=== PATIENT | female | born 1980 | race Caucasian/White ===

== ENCOUNTER 2017-06-15 18:43 | Emergency (ER) | payer MEDICAID ==
[2017-06-15 18:44] VITALS: BMI 25.5
[2017-06-15 18:55] VITALS: TEMP 97.9
[2017-06-15 19:58] VITALS: O2SAT 100
[2017-06-15 20:39] LABS: URINE BILIRUBIN NEGATIVE (NEGATIVE); URINE BLOOD LARGE (NEGATIVE); URINE GLUCOSE (UA) NEGATIVE (NEGATIVE); URINE KETONE TRACE mg/dL (NEGATIVE); URINE LEUKOCYTE ESTERASE SMALL Leu/uL (NEGATIVE); URINE PROTEIN TRACE mg/dL (<30 mg/dL); URINE UROBILINOGEN 0.2 E.U./dL (<1 E.U./dL)
[2017-06-15 20:43] LABS: BASO # 0.03 K/mm3 (0.0-2.0); BASO % 0.4 % (0.0-3.0); EOS # 0.1 (0.0-0.7); EOS % 1.3 % (1.5-5.0); GRAN # 3.63 (1.4-6.5); GRAN % 50.4 % (50.0-68.0); HEMATOCRIT 32.3 % (36.0-48.0); LYMPH # 2.9 (1.2-3.4); MEAN CELL VOLUME 73.7 fl (80.0-105.0); MEAN CORPUSCULAR HEMOGLOBIN 23.3 pg (25.0-35.0); MEAN CORPUSCULAR HGB CONC 31.6 g/dl (31.0-37.0); MEAN PLATELET VOLUME 9.7 fl (7.0-11.0); MONO # 0.6 (0.1-0.6); MONO % 7.9 % (1.0-6.0); RED CELL DISTRIBUTION WIDTH 17.2 % (11.5-14.5); WHITE BLOOD COUNT 7.2 10^3/ul (4.5-11.0)
[2017-06-15 20:45] LABS: ALB/GLOB RATIO 1.2 (1.1-1.8); ALKALINE PHOSPHATASE 71 U/L (38-126); ALT/SGPT 51 U/L (7-56); AST/SGOT 42 U/L (14-36); BILIRUBIN,TOTAL 0.2 mg/dL (0.2-1.3); BLOOD UREA NITROGEN 13 mg/dL (7-21); CALCIUM 8.9 mg/dL (8.4-10.5); CARBON DIOXIDE 27 mmol/L (21-33); CHLORIDE 104 mmol/L (98-107); GFR AFRICAN-AMERICAN > 60; GLUCOSE,RANDOM 97 mg/dL (70-110); POTASSIUM 3.5 mmol/L (3.6-5.0); SODIUM 139 mmol/L (132-148); TOTAL PROTEIN 7.4 g/dL (5.8-8.3)
[2017-06-15 20:45] LABS: URINE APPEARANCE CLEAR (CLEAR); URINE COLOR YELLOW (YELLOW)
[2017-06-15 20:46] LABS: URINE RBC 25 - 30 /hpf (0-2)
[2017-06-15 20:47] LABS: URINE AMORPHOUS SEDIMENT SMALL; URINE BACTERIA TRACE (NEG)
[2017-06-15 21:10] VITALS: BP 141/73; PULSE 88; RESP 16
--- NOTE | 2017-06-15 21:19 | ED PDOC ---
Arrival/HPI - General Chief Complaint: Female Genitourinary Time Seen by Provider: 06/15/17 19:17 Historian: Patient - History of Present Illness Narrative History of Present Illness (Text): 06/15/17 21:19 A 37 year old female presents to the emergency department complaining of chronic lower back pain and vaginal bleeding. Patient reports lower back pain for the past two months. Notes she was seen and [place] [facility] [place] , and xray of back was normal. She was prescribed muscle relaxers. Reports pain is worse when sitting and standing. Patient reports dysuria today, but denies any hematuria, radiation, paresthesia, bowel incontinence. Patient also presents with complaint of vaginal bleeding, intermittently for a month and a half. 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 Reports fibroids and cyst. Notes she is not sexually active. Denies any abdominal pain or any other complaints at this time. Time/Duration: > month, Other (today) Symptom Onset: Sudden Symptom Course: Unchanged Activities at Onset: Rest Context: Home Past Medical History - Provider Review Nursing Documentation Reviewed: Yes - Past History Past History: No Previous - Infectious Disease Hx of Infectious Diseases: None - Tetanus Immunization Tetanus Immunization: Unknown - Reproductive Currently : No - Psychiatric Hx Depression: No Hx Emotional Abuse: No Hx Physical Abuse: No Hx Substance Use: No - Past Surgical History Past Surgical History: No Previous - Surgical History Hx Cholecystectomy: Yes - Suicidal Assessment Feels Threatened In Home Enviroment: No Family/Social History - Physician Review Nursing Documentation Reviewed: Yes Family/Social History: Diabetes Smoking Status: Never Smoked Hx Alcohol Use: No Hx Substance Use: No (denies any h/o IV drug use) Hx Substance Use Treatment: No Allergies/Home Meds Allergies/Adverse Reactions: Allergies No Known Allergies Allergy (Verified 06/15/17 18:55) Review of Systems - Physician Review All systems were reviewed & negative as marked: Yes - Review of Systems Constitutional: absent: Fatigue, Weight Change, Fevers Respiratory: absent: SOB, Cough, Sputum Cardiovascular: absent: Chest Pain, Palpitations, Edema Gastrointestinal: absent: Abdominal Pain, Diarrhea, Vomiting Genitourinary Female: Dysuria, Vaginal Bleeding. absent: Hematuria Musculoskeletal: Back Pain (lower). absent: Arthralgias, Neck Pain, Joint Swelling Skin: absent: Rash, Pruritis, Skin Lesions Physical Exam Vital Signs Reviewed: Yes Vital Signs Temp Pulse Resp BP Pulse Ox 06/15/17 21:07 88 16 141/73 100 06/15/17 19:57 73 18 136/68 100 06/15/17 18:52 97.9 F 72 16 122/82 99 Temperature: Afebrile Blood Pressure: Normal Pulse: Regular Respiratory Rate: Normal Appearance: Positive for: Well-Appearing, Non-Toxic, Comfortable Pain Distress: None Mental Status: Positive for: Alert and Oriented X 3 - Systems Exam Head: Present: Atraumatic, Normocephalic Pupils: Present: PERRL Extroacular Muscles: Present: EOMI Conjunctiva: Present: Normal Mouth: Present: Moist Mucous Membranes Neck: Present: Normal Range of Motion Respiratory/Chest: Present: Clear to Auscultation, Good Air Exchange. No: Respiratory Distress, Accessory Muscle Use Cardiovascular: Present: Regular Rate and Rhythm, Normal S1, S2. No: Murmurs Abdomen: Present: Normal Bowel Sounds. No: Tenderness, Distention, Peritoneal Signs Genitourinary/Pelvic Exam: Present: Other (not performed as the patient is still a virgin) Back: Present: Normal Inspection, Other (paralumbar tenderness). No: CVA Tenderness, Midline Tenderness, Pain with Leg Raise Upper Extremity: Present: Normal Inspection. No: Cyanosis, Edema Lower Extremity: Present: Normal Inspection, Other (straight leg raises negative ). No: Edema Neurological: Present: GCS=15, CN II-XII Intact, Speech Normal Skin: Present: Warm, Dry, Normal Color. No: Rashes Psychiatric: Present: Alert, Oriented x 3, Normal Insight, Normal Concentration Medical Decision Making ED Course and Treatment: 06/15/17 21:17 Impression: A 37 year old female with chronic lower back pain, vaginal bleeding and dysuria today. Plan: -- labs -- Urinalysis -- Toradol -- Reassess and disposition Prior Visits: Notes and results from previous visits were reviewed. Patient was last seen in the emergency department on 07/18/12 for evaluation of epigastric abdominal pain radiating to back. Progress Notes: On re-evaluation, patient reports improvement of her back pain. She is laying in bed comfortably in no acute distress. UA shows +small leuks, urine cx sent and pending. CBC shows patient's hgb is 10.2, compared to prior, pt's previous lab shows her hgb is normally between 11-12. Patient advised to f/u with gifted program teacher for DUB and to f/u with ortho referral provided for her low back pain. - Lab Interpretations Lab Results: 06/15/17 20:20 06/15/17 20:20 Lab Results 06/15/17 20:20: Sodium 139, Potassium 3.5 L, Chloride 104, Carbon Dioxide 27, Anion Gap 12, BUN 13, Creatinine 1.1, Est GFR ( Amer) > 60, Est GFR (Non- Af Amer) 56, Random Glucose 97, Calcium 8.9, Total Bilirubin 0.2, AST 42 H, ALT 51, Alkaline Phosphatase 71, Total Protein 7.4, Albumin 4.1, Globulin 3.4, Albumin/Globulin Ratio 1.2 06/15/17 20:20: WBC 7.2, RBC 4.38, Hgb 10.2 L, Hct 32.3 L, MCV 73.7 L, MCH 23.3 L, MCHC 31.6, RDW 17.2 H, Plt Count 352, MPV 9.7, Gran % 50.4, Lymph % (Auto) 40.0 H, [place] % (Auto) 7.9 H, Eos % (Auto) 1.3 L, Baso % (Auto) 0.4, Gran # 3.63 , Lymph # 2.9, [place] # 0.6, Eos # 0.1, Baso # 0.03 06/15/17 20:00: Urine Color Yellow, Urine Appearance Clear, Urine pH 6.0, Ur Specific [place] >= 1.030, Urine Protein Trace H, Urine Glucose (UA) Negative, Urine Ketones Trace H, Urine Blood Large H, Urine Nitrate Negative, Urine Bilirubin Negative, Urine Urobilinogen 0.2, Ur Leukocyte Esterase Small H, Urine RBC 25 - 30, Urine WBC 2 - 5, Ur Epithelial Cells 6 - 8, Amorphous Sediment Small, Urine Bacteria Trace I have reviewed the lab results: Yes - Medication Orders Current Medication Orders: Discontinued Medications Ketorolac Tromethamine (Toradol) 30 mg IVP STAT STA Stop: 06/15/17 20:04 Last Admin: 06/15/17 20:23 Dose: 30 mg MAR Pain Assessment Document 06/15/17 20:23 CNR (Rec: 06/15/17 20:23 CNR [facility] [id number]) Pain Reassessment Is this a pain reassessment? Yes IVP Administration Document 06/15/17 20:23 CNR (Rec: 06/15/17 20:23 CNR [employer] [id number]) Charges for Administration # of IVP Administrations 1 - Scribe Statement The provider has reviewed the documentation as recorded by the Lonnie Rainey Provider Scribe Attestation: All medical record entries made by the Scribe were at my direction and personally dictated by me. I have reviewed the chart and agree that the record accurately reflects my personal performance of the history, physical exam, medical decision making, and the department course for this patient. I have also personally directed, reviewed, and agree with the discharge instructions and disposition. Disposition/Present on Arrival - Present on Arrival Any Indicators Present on Arrival: No History of DVT/PE: No History of Uncontrolled Diabetes: No Urinary Catheter: No History of Decub. Ulcer: No History Surgical Site Infection Following: None - Disposition Have Diagnosis and Disposition been Completed?: Yes Diagnosis: Low back pain, DUB (dysfunctional uterine bleeding), UTI (urinary tract infection) Disposition: HOME/ ROUTINE Disposition Time: 21:15 Patient Plan: Discharge Patient Problems: Current Active Problems Problem Status Onset Low back pain Acute DUB (dysfunctional uterine bleeding) Acute UTI (urinary tract infection) Acute Condition: STABLE Discharge Instructions (ExitCare): Dysfunctional Uterine Bleeding (ED), Urinary Tract Infection in Women (ED), Acute Low Back Pain (ED) Print Language: FAROESE Additional Instructions: Thank you for letting us take care of you today. You were treated for low back pain, DUB. The emergency medical care you received today was directed at your acute symptoms. If you were prescribed any medication, please fill it and take as directed. It may take several days for your symptoms to resolve. Return to the Emergency Department if your symptoms worsen, do not improve, or if you have any other problems. Please contact your doctor in 2 days for re-evaluation and follow up / or call one of the physicians/clinics you have been referred to that are listed on the Patient Visit Information form that is included in your discharge packet. Bring any paperwork you were given at discharge with you along with any medications you are taking to your follow up visit. Our treatment cannot replace ongoing medical care by a primary care provider (PCP) outside of the emergency department. Thank you for allowing the [facility] team to be part of your care today. If you had a urine culture: It will take several days for the results, if any change in treatment is needed we will contact you. Prescriptions: Meloxicam [Mobic] 15 mg PO DAILY PRN #30 tab PRN Reason: Pain, Moderate (4-7) Nitrofurantoin Macrocrystals [Macrobid] 100 mg PO BID #20 cap Referrals: Jade Cotton MD [Primary Care Provider] - Follow up with primary Patric Trammell DO [Staff Provider] - Follow up with primary Forms: [employer] (Frisian), WORK NOTE
== END 2017-06-15 21:52 | disposition home or self-care (01) ==
LOC: ED 18:43
DX: N93.8 Other specified abnormal uterine and vaginal bleeding (principal); N39.0 Urinary tract infection, site not specified; M54.5 Low back pain
CPT/HCPCS: 80053; 81001; 85025; 87086; 96374; 99284; J1885